=== PATIENT | male | born 1970 | race Caucasian/White ===

== ENCOUNTER 2022-10-08 04:08 | Day surgery (SDC) | payer OTHER ==
[2022-10-07 12:26] VITALS: BMI 27.4
[2022-10-08] MEDS ORDERED: oxyCODONE HCL 5 MG TABLET PO PRN (07:56)
[2022-10-08] MEDS ORDERED: ONDANSETRON 4 MG/2 ML VIAL IVPUSH PRN (07:56)
[2022-10-08] MEDS ORDERED: LACTATED RINGERS SOLUTION 1,000 ML IV SCH (08:00)
[2022-10-08] MEDS ORDERED: MIDAZOLAM HCL 2 MG/2 ML SINGLE DOSE VIAL ONE ×2 (08:30→08:38)
[2022-10-08] MEDS ORDERED: DEXAMETHASONE SOD PHOSPHATE 10 MG/1 ML VIAL ONE (08:31)
[2022-10-08] MEDS ORDERED: ROPIVACAINE HCL 0.5% 30ML VIAL ONE (08:31)
[2022-10-08] MEDS ORDERED: PROPOFOL 80 ML ONE (09:04)
[2022-10-08] MEDS ORDERED: ceFAZolin SODIUM 1 GM VIAL IVPB ONE (09:14)
[2022-10-08] MEDS ORDERED: PROPOFOL 60 ML ONE (09:58)
[2022-10-08 14:00] VITALS: BP 116/98; PULSE 102; RESP 18; TEMP 97.7
== END 2022-10-08 14:10 | disposition home or self-care (01) ==
LOC: JASU-SURG 04:08
PROVIDERS: ATTEND Orthopaedic Surgery
PROC: 0RNJ4ZZ Release Right Shoulder Joint, Percutaneous Endoscopic Approach (ICD-10-PCS; principal; 2022-10-08 08:45)
PROC: 0LM14ZZ Reattachment of Right Shoulder Tendon, Percutaneous Endoscopic Approach (ICD-10-PCS; 2022-10-08 08:45)
DX: M75.101 Unspecified rotator cuff tear or rupture of right shoulder, not specified as traumatic (principal)
CPT/HCPCS: 94760; C1713; C1763; C1883; J1100